=== PATIENT | male | born 1950 | race Caucasian/White ===

== ENCOUNTER 2017-08-16 09:34 | Outpatient (CLI) | payer MEDICARE, BC ==
--- OUTSIDE RECORDS SUMMARY | 2017-08-16 09:37 | XMS | Clinical Summary ---
:1950 Author Organization [facility] Address [address] [place] [address] Phone Care Team Providers Name Role Phone , Primary Care Provider Unavailable Allergies Not on File Current Medications Not on file Active Problems Not on file Social History Tobacco Use Types Packs/Day Years Used Date Never Assessed Sex Assigned at Date Recorded Not on file Last Filed Vital Signs Not on file Plan of Treatment Not on file Results Not on filefrom Last 3 Months
--- NOTE | 2017-08-16 12:34 | MRI ---
MRI LUMBAR SPINE WITHOUT CONTRAST: INDICATION: Back and leg pain. COMPARISON: None. FINDINGS: There is Modic end plate degenerative change at L4-5 and L5-S1. The conus is seen to terminate at approximately L1. Visualized retroperitoneum and paravertebral soft tissues appear within normal limits. At L5-S1, there is a broad-based disk-osteophyte complex and facet joint degenerative change inducin g mild bilateral neural foraminal narrowing. At L4-5, there is disk-osteophyte complex superimposed right paracentral disk protrusion. The protr usion and disk-osteophyte complex does induce severe narrowing of the right lateral recess with pote ntial for impingement of the traversing right L5 nerve root. The disk-osteophyte complex and facet joint degenerative change induces mild bilateral neural foraminal narrowing. At L3-4, there is a broad-based bulge with facet joint degenerative change. There is a bony hemangi patricia within L3. At L2-3, there is mild facet joint change without appreciable central canal or neural foraminal narr owing. At L2, there is mild facet joint degenerative change without appreciable central canal narrowing. T here is a bony hemangioma within L1. At T12-L1, there is no appreciable central canal or neural foraminal narrowing. IMPRESSION: 1. Broad-based disk-osteophyte complex at L4-5 with superimposed right paracentral protrusions caus ing severe narrowing of the right lateral recess with potential for impingement of traversing right L5 nerve root. 2. Mild bilateral neural foraminal narrowing at L4-5 and L5-S1. 3. Bony hemangioma is seen within L3 and L1. POS: KINGA
== END 2017-08-16 09:35 | disposition home or self-care (01) ==
LOC: SCSMRI 09:34
PROVIDERS: ATTEND Physical Medicine & Rehabilitation
DX: M54.5 Low back pain (principal); M51.26 Other intervertebral disc displacement, lumbar region; D18.09 Hemangioma of other sites
CPT/HCPCS: 72148

== ENCOUNTER 2018-02-01 08:09 | Outpatient (CLI) | payer MEDICARE, BC ==
--- NOTE | 2018-02-01 10:36 | MRI ---
MRI RIGHT KNEE WITHOUT CONTRAST: HISTORY: Right knee pain. COMPARISON: Knee radiographs from 2013. FINDINGS: MEDIAL MENISCUS: There is an undersurface flap tear throughout the medial meniscal body and posterio r horn, with abnormal signal extending to the root attachment. There is medial gutter extrusion of t he flap fragment. LATERAL MENISCUS: Intact. ACL and PCL are intact. The LCL is intact. Mild thickening of the media l collateral ligament, as well as some deep edema, likely sequelae of fluid extending from the menisc al tear. EXTENSOR MECHANISM: The quadriceps tendon, patella, and patella tendon are intact. PATELLOFEMORAL COMPARTMENT: There is some superficial cartilage fissuring of the lateral patellar fa cet. MEDIAL COMPARTMENT: There is moderate chondral fraying throughout the weight bearing surface of the medial femoral condyle and medial tibial plateau. LATERAL COMPARTMENT: There is 50% thickness cartilage fissuring of the central weight bearing surfac e of the lateral tibial plateau and lateral femoral condyle. The posterior flexion zones are intact. SOFT TISSUES: There is popliteal cyst, measuring 2.9 x 1.7 x 4.8 cm, without evidence of a recent le ak. MUSCLES: Muscle signal and bulk are normal. IMPRESSION: 1. Undersurface flap tear of the body and posterior horn of the lateral meniscus. There does appear to be a small fragment of meniscal tissue within the intercondylar notch abutting the articular surf cade of the lateral-most portion of the medial compartment. There is advanced cartilage fissuring of the lateral weight bearing surface of the medial femoral condyle at the level of the flipped meniscal tissue. 2. Popliteal cyst without leak. 3. 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 POS: OFF
== END 2018-02-01 08:10 | disposition home or self-care (01) ==
LOC: SCSMRI 08:09
PROVIDERS: ATTEND Orthopaedic Surgery
DX: M25.561 Pain in right knee (principal); M71.21 Synovial cyst of popliteal space [Baker], right knee; M22.41 Chondromalacia patellae, right knee; S83.281A Other tear of lateral meniscus, current injury, right knee, initial encounter

== ENCOUNTER 2019-03-13 13:02 | Outpatient (CLI) | payer MEDICARE, BC ==
--- NOTE | 2019-03-13 13:51 | MRI ---
MRI Lower Ext Jt Rt WO Con History: [M17.11 primary osteoarthritis of right knee] Comparison: MRI January 2018 Findings: Medial meniscus: Progressive tearing and maceration of the body of the medial meniscus with degenerative signal within the posterior horn. Lateral meniscus: Intact ACL, PCL, MCL, and LCL are intact. Extensor mechanism: Quadriceps tendon, patella, and patellar tendon are intact. Cartilage: Some patellofemoral compartment: High-grade cartilage fraying and fissuring along the late ral patellar facet. Medial compartment: Progressive cartilage loss the medial compartment with the complete denuding of t he central articular surfaces of the medial femoral condyle and medial tibial plateau with subcortical marrow edema and osteophyte formation. Lateral compartment: Progressive cartilage defects Central weightbearing surfaces of the lateral femoral condyle lateral tibial plateau, 75% thickness f issuring. Soft tissues: Moderate joint effusion. Debris-containing popliteal cyst with caudal dehiscence. Muscles: Muscle signal and bulk is normal. Impression: 1. Progressive degeneration of the medial meniscal body with complex tearing and maceration. There is loss of hoop stress with grade IV chondromalacia medial compartment stress edema. 2. Debris-containing popliteal cyst with caudal dehiscence. 3. Moderate joint effusion. 4. Grade 2/3 chondromalacia of the patellofemoral compartment. Chondromalacia
== END 2019-03-13 13:03 | disposition home or self-care (01) ==
LOC: SCSMRI 13:02
PROVIDERS: ATTEND Orthopaedic Surgery
DX: S83.281D Other tear of lateral meniscus, current injury, right knee, subsequent encounter (principal); M17.11 Unilateral primary osteoarthritis, right knee; S83.231A Complex tear of medial meniscus, current injury, right knee, initial encounter; M94.261 Chondromalacia, right knee; M71.21 Synovial cyst of popliteal space [Baker], right knee; M25.461 Effusion, right knee

== ENCOUNTER 2019-05-10 01:30 | Outpatient (CLI) | payer MEDICARE, BC ==
[2019-05-10 10:45] LABS: #Eosinphils 0.1 thou/uL (0.0-0.7); #Lymphocytes 0.8 thou/uL (1.20-3.40); #Monocytes 0.5 thou/uL (0.11-0.59); #Neutrophils 3.1 thou/uL (1.40-6.50); %Basophils 0.6 % (0.0-1.0); %Eosinophils 2.3 % (0.0-10.0); %Lymphocytes 17.3 % (21.0-51.0); %Monocytes 10.5 % (0.0-10.0); %Neutrophils 69.3 % (42.0-75.0); Hemoglobin 14.4 g/dL (14.0-18.0); Mean Platelet Volume 9.2 fL (7.4-10.4); Platelet Count 155 thou/uL (130-400); RBC Distribution Width 11.4 % (11.5-14.5); Red Blood Cell (RBC) Count 4.24 mill/uL (4.70-6.10); White Blood Cell (WBC) Count 4.5 thou/uL (4.8-10.8)
[2019-05-10 10:55] LABS: INR-International Normal Ratio 1.1; Prothrombin Time 13.8 SEC (12.0-14.7)
[2019-05-10 11:07] LABS: Anion Gap 13 mmol/L (10-20); BUN (Urea Nitrogen) 14 mg/dL (8.4-25.7); Calc. Creatinine Clearance 0 mL/min (70-130); Calcium 9.6 mg/dL (7.8-10.44); Carbon Dioxide 28 mmol/L (23-31); Chloride 104 mmol/L (98-107); Estimated GFR-MDRD 71; Glucose 82 mg/dL (80-115); Potassium 5.1 mmol/L (3.5-5.1); Sodium 140 mmol/L (136-145)
== END 2019-05-10 01:31 | disposition home or self-care (01) ==
LOC: LABBT 01:30
PROVIDERS: ATTEND Orthopaedic Surgery
DX: Z01.818 Encounter for other preprocedural examination (principal); M17.11 Unilateral primary osteoarthritis, right knee
CPT/HCPCS: 80048; 85025; 85610; 87081; 93005; 93010

== ENCOUNTER 2019-05-22 05:37 | Inpatient (IN) | payer MEDICARE, BC ==
[2019-05-10 08:38] VITALS: BMI 25.1
[2019-05-22] MEDS ORDERED: Tranexamic Acid 1,000 MG/10 ML VIAL ONE (06:21)
[2019-05-22] MEDS ORDERED: Sodium Chloride 0.9% 100 ML ONE (06:21)
[2019-05-22] MEDS ORDERED: Fentanyl 100 MCG/2 ML VIAL ONE ×2 (06:29→08:54)
[2019-05-22] MEDS ORDERED: Midazolam HCl 2 mg/2 ml Vial ONE (06:29)
[2019-05-22] MEDS ORDERED: Scopolamine 1.5 mg/72 hour Patch ONE (06:30)
[2019-05-22] MEDS ORDERED: Ondansetron PF 4 MG/2 ML Vial ONE (06:30)
[2019-05-22] MEDS ORDERED: Zolpidem Tartrate 5 MG TAB PO PRN ×2 (07:03→07:09)
[2019-05-22] MEDS ORDERED: Acetaminophen 325 MG TAB PO PRN (07:03)
[2019-05-22] MEDS ORDERED: Promethazine HCl 25 MG/ML VIAL IM PRN ×3 (07:03→07:50)
[2019-05-22] MEDS ORDERED: Ondansetron PF 4 MG/2 ML Vial IVP PRN ×2 (07:03→07:09)
[2019-05-22] MEDS ORDERED: HYDROcodone/Acetaminophen 10/325 mg Tablet PO PRN ×2 (07:03)
[2019-05-22] MEDS ORDERED: diphenhydrAMINE 25 MG CAP PO PRN (07:03)
[2019-05-22] MEDS ORDERED: Polyethylene Glycol 3350 17 GM Packet PO PRN (07:05)
[2019-05-22] MEDS ORDERED: Ropivacaine HCl/PF 250 ML in Premix Bag 1 BAG NERVE BLCK SCH (07:09)
[2019-05-22] MEDS ORDERED: traMADol HCl 50 MG TAB PO PRN ×2 (07:09)
[2019-05-22] MEDS ORDERED: Fentanyl 100 MCG/2 ML VIAL IV PRN (07:10)
[2019-05-22] MEDS ORDERED: Ondansetron HCl/PF 4 MG/2 ML Vial IVP PRN (07:50)
[2019-05-22] MEDS ORDERED: Promethazine HCl 25 MG/ML VIAL SLOW IVP PRN (07:50)
[2019-05-22] MEDS ORDERED: Non-Formulary Item 1 EACH (Multivitamin [Multi-Vitamin Daily] 1 TABLET) PO SCH (09:00)
[2019-05-22] MEDS ORDERED: Aspirin 81 mg Enteric Coated Tablet PO SCH (09:00)
--- NOTE | 2019-05-22 09:20 | RAD ---
EXAM: XR Knee Rt 2 View DATE: 05/22/2019 9:00 AM INDICATION: Right total knee arthroplasty COMPARISON: Right knee radiograph dated June 19, 2013 FINDING: Since the comparison examination there is been placement of a right total knee prosthesis. The prosthetic components project in the expected position. There is scattered intra-articular and periarticular soft tissue gas consistent with the patient's recent postoperative state. IMPRESSION:Right total knee arthroplasty without radiographic evidence of complication.
[2019-05-22] MEDS: Carbidopa/Levodopa 10-100 mg Tablet PO SCH ×3 (12:54→21:16)
[2019-05-22] MEDS: Aspirin 81 mg Enteric Coated Tablet PO SCH ×2 (12:54→21:16)
[2019-05-22] MEDS: Ubidecarenone 50 MG CAP PO SCH (12:55)
[2019-05-22] MEDS: Ketorolac Tromethamine 30 MG/ML VIAL IVP SCH ×2 (13:17→18:33)
[2019-05-22] MEDS: CEFAZOLIN 2 GM in Premix Bag 1 BAG IVPB SCH ×2 (13:22→21:17)
[2019-05-22] MEDS: Sodium Chloride 0.9% 1,000 ML IV SCH ×2 (13:23→18:37)
[2019-05-22] MEDS ORDERED: Ropivacaine 0.5% HCl/PF (150 MG/30 ML VIAL) ONE (13:53)
[2019-05-22] MEDS ORDERED: Ropivacaine 0.2% HCl/PF (40 MG/20 ML VIAL) ONE (13:53)
--- NOTE | 2019-05-22 14:57 | OP ---
DATE OF PROCEDURE: 05/22/2019 PREOPERATIVE DIAGNOSIS: End-stage tricompartmental osteoarthritis, right knee. POSTOPERATIVE DIAGNOSIS: End-stage tricompartmental osteoarthritis, right knee. PROCEDURE PERFORMED: Right cemented cruciate sparing computer-assisted navigated right total knee arthroplasty. 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 ANESTHESIA: General via LMA augmented with indwelling adductor canal block and a single shot anterior sciatic block. COMPONENTS USED: [facility] [employer] Triathlon size 6 cemented cruciate sparing, femoral component with a size 6 cemented primary tibial base plate, 9 mm polyethylene fixed bearing insert, and A32 patellar button. FINDINGS: End-stage severe degenerative tricompartmental disease, [id number] arthrosis, periarticular osteophyte formation, large serous effusion with Reyes's cyst and hypertrophic synovium. Changes consistent with degenerative genu varum. TOURNIQUET TIME: 52 minutes at 300 mmHg. ESTIMATED BLOOD LOSS: Less than 100. DRAINS: None. SPECIMENS: None. COMPLICATIONS: None. COUNTS: Correct. INDICATIONS FOR SURGERY: Hamilton is a 69-year-old white male, who has had progressive right knee pain with standing or walking for the last 5 to 7 years. He has failed conservative management, elected to proceed with total knee arthroplasty as definitive treatment of his pain. PROCEDURE IN DETAIL: After informed consent was obtained in the preoperative holding area, the patient was taken to the operative suite where general anesthesia was induced. Once adequate level of general anesthesia was obtained, the patient was positioned and a well-padded tourniquet was placed around the right proximal thigh. The right lower extremity was then prepped and draped in the usual sterile fashion. Prior to exsanguination, a time-out was called and all members of the surgical team agreed upon site, surgeon, and patient. The extremity was then exsanguinated and the tourniquet was raised. A midline longitudinal incision was then made directly over the patella extending 2 fingerbreadths above the superior pole of the patella and 2 fingerbreadths inferior to the inferior patellar pole of the patella. Deeper subcutaneous layers were dissected sharply and local bleeding was controlled with Bovie electrocautery. A quad tendon longitudinal split was then made sharply and a median parapatellar arthrotomy was carried out both sharp and with Bovie electrocautery, carried down to 1 fingerbreadth medial to the tibial tubercle. The knee was then placed into flexion and the patella was everted nicely, and a copious fat pad ectomy was performed allowing for greater exposure of the tibia. The computer-assisted distal femoral fiducial was then placed and pinned firmly, and the distal femoral cutting guide was pinned firmly into place. The oscillating saw was then used to remove the appropriate amount of bone. The 4-in-1 cutting block was then placed on the distal femur and the oscillating saw was used to remove the appropriate amount of bone off the anterior, posterior, and chamfer cuts. After completion of bone cuts, the anterior cruciate ligament was resected sharply and the posterior cruciate ligament retractor was placed and the tibia was subluxed for better exposure. Partial meniscectomies were carried out, and the tibial computer-assisted fiducial was pinned, and the cutting guide was placed. Oscillating saw was then used to remove the bone, with Hohmann retractors used to take care and protect the collateral ligaments. After the tibial resection was performed, a laminar hog trader was placed in between the freshened bone cuts. The knee placed at 90 degrees and further bilateral meniscectomies were carried out, and the curved osteotome and curettage were used to remove any excess bone spurs in the posterior compartment. The trial femoral component, tibial baseplate were placed with the appropriate polyethylene trial insert with an appropriate polyethylene spacer and patellar button. The knee was taken through full range of motion with flexion and extension from 0 to 90 degrees and patellar broach squarely in the trochlea without any squinting or subluxation noted. The knee was also stable to varus and valgus stressing at 0, 15, 45, and 90 degrees of flexion. The drawer was negative. All trial components were then removed and the keel punch was used to provide the appropriate defect in the tibia with a mallet. The freshened bone cuts were copiously irrigated with pulsatile lavage of about 1.5 L to remove all excess debris. The freshened bone cuts were then dried with suction and lap sponge. The knee was placed in flexion and retractors were placed to provide access to all bone cuts. Tobramycin-impregnated methyl methacrylate cement was then placed on the freshened bone cuts and implants which were malleted firmly into place. Curettage and Morenci elevators were used to remove any excess bone cement. The knee was placed into full extension and the patellar button was placed under compression, and the cement was allowed to cure. Once completed, the components were again taken through full range of motion and copious irrigation of the knee was carried out with another liter of normal saline. All components were inspected fully with full range of motion and varus and valgus stressing. There was no laxity noted and full extension was observed clinically. Primary closure was accomplished with #2 interrupted Vicryl stitch of the arthrotomy defect. This was oversewn with a #2 running Quill barbed stitch. The gravitational platelet system was then injected into the arthrotomy prior to closure. The subcutaneous layer was then closed with a running 0 barbed Monocryl stitch and skin closure accomplished with a running subcuticular 3-0 Monocryl barbed Quill stitch and augmented with cement on the skin. Tourniquet was lowered. Good spontaneous return of distal pulses was noted clinically and a sterile dressing was applied to the incision. The procedure was terminated without any complications. The patient was awakened in the operative suite and the patient was taken to the recovery room in stable condition. Job ID: [id number]
[2019-05-22] MEDS: HYDROcodone/Acetaminophen 10/325 mg Tablet PO PRN ×2 (15:15→21:24)
--- NOTE | 2019-05-22 17:10 | CON ---
DATE OF CONSULTATION: 05/22/2019 REQUESTING PHYSICIAN: Dr. Tomas. PURPOSE: Medical management. HISTORY OF PRESENT ILLNESS: This is a 69-year-old male with history of Parkinson's disease, dyslipidemia, kidney stones, chronic back pain, who presents to the hospital today for a right total knee replacement. The patient reports that he is otherwise feeling well, denies any chest pain or difficulty breathing, recent fevers or chills, nausea, vomiting, or abdominal pain. He reports chronic back pain secondary to bulging disks on the right side of his low back. He denies any other symptoms prior to surgery, or since then. The patient underwent right total knee replacement with Dr. Tomas today. PAST MEDICAL HISTORY: 1. Parkinson's disease with balance issues, constipation, occasional drooling, and some left-sided shaking. 2. 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 3. Kidney stones. 4. Dyslipidemia. 5. Chronic back pain with bulging disks that has been managed with injections in [facility]. PAST SURGICAL HISTORY: 1. Bilateral wrists. 2. Left elbow. 3. Sinus surgery. 4. Total knee replacement today on right side. FAMILY HISTORY: Significant for stroke. SOCIAL HISTORY: The patient is an [employer] and reports a history of exposure to [place]. He denies tobacco, is and his is his surrogate decision maker. He is a full code. He does have some advanced directives in the hospital in his chart, and confirms full code status. ALLERGIES: NO KNOWN ALLERGIES TO MEDICATION. REVIEW OF SYSTEMS: Positive for back pain, headache last week that has resolved ; some balance changes and left-sided shaking associated with Parkinson's disease. Negative for fevers, chills, nausea, vomiting, chest pain. All remaining review of systems are reviewed and negative. MEDICATIONS: 1. Aspirin 81 mg daily. 2. Atorvastatin 20 mg at bedtime. 3. Carbidopa/levodopa 10-100, 1 tab at 8:00, 14:00 and 20:00 daily 4. Fish oil 1200 mg daily. 5. Multivitamin daily. 6. Polyethylene Glycol 17 grams daily. 7. Coenzyme Q10 100 mg daily. 8. Fluocinonide cream as needed. 9. Xnwc-xla-lypqotl fiber supplement as needed. PHYSICAL EXAMINATION: VITAL SIGNS: Blood pressure 140/75, pulse 59, temperature 97.9. Saturation is 96% on room air. GENERAL: Awake, alert, responsive, in no apparent distress. Able to speak in full sentences. HEENT: Pupils are equal and round. No scleral icterus. Oral mucosa is pink and moist. NECK: Supple, nontender. LYMPHATICS: No palpable cervical or supraclavicular lymphadenopathy. LUNGS: Clear to auscultation bilateral. No audible wheezing, rhonchi, or rales. HEART: Normal S1 and S2. Regular rate and rhythm. No significant murmur. ABDOMEN: Soft with present bowel sounds. Nontender, nondistended. EXTREMITIES: No clubbing, cyanosis, or edema. VASCULAR: 2+ dorsalis pedis pulses. SKIN: No visible rashes. His right knee is Devonte wrapped. NEUROLOGIC: No gross deficits. PSYCH: The patient is euthymic. Alert and oriented x4. LABORATORY DATA: Labs personally reviewed in his chart; CBC 4.5, 14.4, 42.4, 155. INR 1.1. Renal panel; 140, 5.1, 104/28, 14, 1.03, 82 with a calcium of 9.6. EKG is personally reviewed, sinus rhythm with a bradycardic and a rate of 54, left axis deviation, normal intervals, no ST changes. IMPRESSION: 1. Status post right total knee replacement. 2. Parkinson disease. 3. Chronic low back pain. 4. Dyslipidemia. 5. History of renal stones. 6. Remote history of malignant fibrous histiocytoma, in remission. PLAN: 1. Postoperative care per Dr. Tomas. 2. We will time the patient's carbidopa/levodopa the way he takes at home at 8, 1400, and 2000. 3. Continuing his home medications, reviewed this on his chart. 4. Monitoring his labs tomorrow post-operatively. 5. We will change his MiraLAX to nighttime, as he did not receive a dose this morning due to surgery, and docusate-senna added by Orthopedics team. 6. DVT prophylaxis per Dr. Tomas or Anesthesia. 7. GI prophylaxis not indicated. 8. Code status is full. Surrogate decision maker is the patient's . Reviewed the plan of care, and the role of the hospitalist with the patient and his . No questions or further needs at end of evaluation. Thank you for this consult, we will see the patient daily while he is here. Please call with any questions. Job ID: [id number] MTDD
[2019-05-22] MEDS: Atorvastatin Calcium 20 MG TAB PO SCH (21:16)
[2019-05-22] MEDS: Polyethylene Glycol 3350 17 GM Packet PO SCH (21:17)
[2019-05-23] MEDS: Ketorolac Tromethamine 30 MG/ML VIAL IVP SCH ×5 (00:20→23:17)
[2019-05-23] MEDS: Sodium Chloride 0.9% 1,000 ML IV SCH ×3 (04:18→23:15)
[2019-05-23 05:35] LABS: Anion Gap 11 mmol/L (10-20); BUN (Urea Nitrogen) 13 mg/dL (8.4-25.7); Calc. Creatinine Clearance 85 mL/min (70-130); Calcium 8.4 mg/dL (7.8-10.44); Carbon Dioxide 25 mmol/L (23-31); Chloride 104 mmol/L (98-107); Estimated GFR-MDRD 82; Glucose 102 mg/dL (80-115); Potassium 4.3 mmol/L (3.5-5.1); Sodium 136 mmol/L (136-145)
[2019-05-23 05:37] LABS: Hemoglobin 12.9 g/dL (14.0-18.0); Mean Corpuscular HGB CONC 34.1 g/dL (32.0-36.0); Mean Corpuscular Hemoglobin 34.4 pg (27.0-31.0); Mean Platelet Volume 9.6 fL (7.4-10.4); Platelet Count 100 thou/uL (130-400); RBC Distribution Width 11.1 % (11.5-14.5); Red Blood Cell (RBC) Count 3.76 mill/uL (4.70-6.10); White Blood Cell (WBC) Count 6.9 thou/uL (4.8-10.8)
[2019-05-23] MEDS: Carbidopa/Levodopa 10-100 mg Tablet PO SCH ×3 (07:06→20:00)
[2019-05-23] MEDS: Ubidecarenone 50 MG CAP PO SCH (09:00)
[2019-05-23] MEDS: Aspirin 81 mg Enteric Coated Tablet PO SCH ×2 (09:01→20:00)
[2019-05-23] MEDS: Ferrous Gluconate 324 MG TAB PO SCH ×2 (09:01→17:23)
[2019-05-23] MEDS: Multivitamin W/ Minerals 1 TAB PO SCH (09:01)
[2019-05-23] MEDS: HYDROcodone/Acetaminophen 10/325 mg Tablet PO PRN ×3 (09:02→19:59)
[2019-05-23] MEDS: Senokot S 8.6-50 MG TAB PO SCH ×2 (09:05→20:00)
[2019-05-23] MEDS ORDERED: PROPOFOL 200 MG/20 ML VIAL ONE (13:57)
[2019-05-23] MEDS ORDERED: Lidocaine 1% PF 5 ML VIAL ONE (13:57)
[2019-05-23] MEDS ORDERED: Ketorolac Tromethamine 30 MG/ML VIAL ONE (13:57)
[2019-05-23] MEDS ORDERED: Ondansetron PF 4 MG/2 ML Vial ONE (13:57)
--- NOTE | 2019-05-23 18:16 | PRG ---
DATE OF SERVICE: 05/23/2019 SUBJECTIVE: A 69-year-old male with Parkinson disease, chronic constipation, and chronic low back pain. Underwent right total knee arthroplasty yesterday. Hospitalist Team was consulted for medical management. He has some discomfort in the right knee. Otherwise, he denies any chest pain, shortness of breath, palpitations, or nausea. He is passing gas, however, did not have any bowel movement. He usually takes MiraLAX at home. No fever or chills reported. EKG by my review showed sinus bradycardia. OBJECTIVE: VITAL SIGNS: Temperature 98.9, pulse 65, respirations are 16, blood pressure 143/75, and O2 saturation 96% on room air. GENERAL: A 69-year-old male in no apparent distress. LUNGS: Clear to auscultation bilaterally. HEART: S1 and S2 present. Regular rate and rhythm. ABDOMEN: Soft. Bowel sounds present. EXTREMITIES: No edema or calf tenderness. NEUROLOGY: No new focal findings. REVIEW OF SYSTEMS: The patient denies any nausea, vomiting, fever, chills, or chest pain. LABORATORY FINDINGS: WBC 6.9, hemoglobin 12.9, and platelets are 100. Chemistry showed sodium 136, potassium 4.3 with BUN 13 and creatinine 0.91. Knee x-ray showed right total knee arthroplasty without any evidence of complication. CURRENT MEDICATIONS: Reviewed. IMPRESSION: 1. Status post right total knee arthroplasty. 2. Parkinson disease. 3. Hyperlipidemia. 4. Chronic constipation. 5. Thrombocytopenia. 6. Chronic kidney disease, stage 2. 7. Chronic low back pain. 8. History of renal stone. 9. Remote history of malignant fibrous histiocytoma in remission. PLAN: We will continue current dose of carbidopa and levodopa as well as statins. We will continue Senokot S twice a day along with MiraLAX nightly. We will recheck CBC in a.m. to monitor the platelets. Continue other medications as below. Continue physical therapy. Plan was discussed with the patient and the family in detail, they stated understanding. Job ID: [id number]
[2019-05-23] MEDS: Polyethylene Glycol 3350 17 GM Packet PO SCH (20:00)
[2019-05-23] MEDS: Atorvastatin Calcium 20 MG TAB PO SCH (20:00)
[2019-05-24 04:59] LABS: Hemoglobin 13.1 g/dL (14.0-18.0); Mean Corpuscular HGB CONC 33.5 g/dL (32.0-36.0); Mean Corpuscular Hemoglobin 34.4 pg (27.0-31.0); Mean Platelet Volume 9.5 fL (7.4-10.4); Platelet Count 122 thou/uL (130-400); RBC Distribution Width 11.3 % (11.5-14.5); White Blood Cell (WBC) Count 9.6 thou/uL (4.8-10.8)
[2019-05-24] MEDS: Ketorolac Tromethamine 30 MG/ML VIAL IVP SCH (05:55)
[2019-05-24 08:15] VITALS: BP 149/73; TEMP 98
[2019-05-24] MEDS: Carbidopa/Levodopa 10-100 mg Tablet PO SCH ×2 (08:43→14:21)
[2019-05-24] MEDS: Ferrous Gluconate 324 MG TAB PO SCH (08:44)
[2019-05-24] MEDS: Multivitamin W/ Minerals 1 TAB PO SCH (08:45)
[2019-05-24] MEDS: Senokot S 8.6-50 MG TAB PO SCH (08:45)
[2019-05-24] MEDS: Ubidecarenone 50 MG CAP PO SCH (08:45)
[2019-05-24] MEDS: Aspirin 81 mg Enteric Coated Tablet PO SCH (08:46)
[2019-05-24] MEDS ORDERED: Polyethylene Glycol 3350 17 GM Packet PO SCH (09:00)
[2019-05-24] MEDS: Sodium Chloride 0.9% 1,000 ML IV SCH (10:27)
[2019-05-24] MEDS: HYDROcodone/Acetaminophen 10/325 mg Tablet PO PRN (10:32)
== END 2019-05-24 14:05 | disposition home or self-care (01) | DRG 470 ==
LOC: SDC 05:37 → SURG B 07:03
PROVIDERS: ADMIT Orthopaedic Surgery; ATTEND Orthopaedic Surgery
PROC: 0SRC0J9 Replacement of Right Knee Joint with Synthetic Substitute, Cemented, Open Approach (ICD-10-PCS; principal; 2019-05-22)
PROC: 8E0YXBZ Computer Assisted Procedure of Lower Extremity (ICD-10-PCS; 2019-05-22)
DX: M17.11 Unilateral primary osteoarthritis, right knee (principal); G20 Parkinson's disease; E78.5 Hyperlipidemia, unspecified; G89.29 Other chronic pain; M54.9 Dorsalgia, unspecified; K59.09 Other constipation; N18.2 Chronic kidney disease, stage 2 (mild); Z79.899 Other long term (current) drug therapy; Z79.82 Long term (current) use of aspirin
CPT/HCPCS: 36415; 80048; 85027; C1713; C1776; J0690; J1885; J2001; J2250; J2405; J2704; J2795; J3010; J3370; J3490

== ENCOUNTER 2019-05-28 10:20 | Outpatient (CLI) | payer MEDICARE, BC ==
--- NOTE | 2019-05-28 13:13 | ULT ---
VENOUS DOPPLER ULTRASOUND OF THE RIGHT LOWER EXTREMITY. HISTORY: Right leg edema and pain. TECHNIQUE: Valverde scale ultrasound with color flow and spectral Doppler imaging of the deep venous system of the r ight lower extremity is performed. FINDINGS: There is good flow, compression, and augmentation noted in the right common femoral, femoral, deep fe moral, popliteal, posterior tibial, and greater saphenous veins. IMPRESSION: No evidence of deep vein thrombosis in the right lower extremity. POS: OFF
== END 2019-05-28 10:21 | disposition home or self-care (01) ==
LOC: SCSULT 10:20
PROVIDERS: ATTEND Orthopaedic Surgery
DX: M79.604 Pain in right leg (principal); M79.89 Other specified soft tissue disorders

== ENCOUNTER 2023-10-03 07:37 | Outpatient (CLI) | payer MEDICARE, BC | END 2023-10-03 07:38 | disposition home or self-care (01) | LOC: SCSMRI 07:37 | PROVIDERS: ATTEND Psychiatry & Neurology Neurology | DX: G20.A1 Parkinson's disease without dyskinesia, without mention of fluctuations (principal); I67.89 Other cerebrovascular disease; G93.89 Other specified disorders of brain | CPT/HCPCS: 70551 ==